=== PATIENT | male | born 1980 | race Caucasian/White ===

== ENCOUNTER 2023-05-06 18:27 | Observation (INO) | payer BC, OTHER ==
[~2023-05-06] VITALS: Ht 175.3 cm; Wt 90.7 kg
[2023-05-06 21:21] LABS: BASOPHILS % (AUTO) 0.4 % (0.0-5.0); EOSINOPHILS % (AUTO) 1.7 % (0.0-8.0); HEMATOCRIT 48.2 % (42-54); LYMPHOCYTES % (AUTO) 32.6 % (21.0-51.0); MEAN CORPUSCULAR HEMOGLOBIN 29.1 pg (27.0-33.0); MEAN CORPUSCULAR HGB CONC 32.6 g/dL (32.0-36.0); MEAN CORPUSCULAR VOLUME 89.3 fL (79-99); MONOCYTES % (AUTO) 10.2 % (3.0-13.0); NEUTROPHILS % (AUTO) 54.6 % (40.0-77.0); PLATELET COUNT (AUTO) 336 K/uL (130-400); RED CELL DISTRIBUTION WIDTH 12.7 % (11.0-15.5); WHITE BLOOD COUNT (AUTO) 8.3 K/uL (4.8-10.8)
[2023-05-06 21:29] LABS: CREATININE 1.3 mg/dL (0.5-1.5); POTASSIUM 3.6 mmol/L (3.5-5.1)
[2023-05-06 21:34] LABS: TOTAL PROTEIN, SERUM 8.3 g/dL (6.0-8.3)
[2023-05-07] MEDS ORDERED: VANCOMYCIN PROTOCOL PER PHARMACY IV SCH (00:30)
[2023-05-07] MEDS ORDERED: ZOSYN 3.375GM +NS 50ML IVPB ONE (00:30)
[2023-05-07] MEDS ORDERED: VANCOMYCIN 1G/250ML KIT 250 ML IV ONE ×2 (01:00→16:00)
[2023-05-07] MEDS ORDERED: POTASSIUM CHLORIDE 20MEQ/100ML 100 ML IV PRN (02:30)
[2023-05-07] MEDS ORDERED: VANCOMYCIN PROTOCOL PER PHARMACY IV PRN (02:30)
[2023-05-07] MEDS ORDERED: POTASSIUM CHLORIDE 10% ELIXIR 20 MEQ/15 ML UDCUP PO PRN (02:30)
[2023-05-07] MEDS ORDERED: MORPHINE 4 MG SYG IV PRN (02:30)
[2023-05-07] MEDS ORDERED: MORPHINE 2 MG SYG IV PRN (02:30)
[2023-05-07] MEDS ORDERED: ONDANSETRON 4MG INJ IV PRN (02:30)
[2023-05-07] MEDS ORDERED: LISINOPRIL 10 MG TABLET PO ONE (02:30)
[2023-05-07] MEDS ORDERED: ACETAMINOPHEN 325 MG TAB PO PRN ×2 (02:30)
[2023-05-07] MEDS ORDERED: KCL 20 MEQ ERTAB PO PRN (02:30)
[2023-05-07] MEDS ORDERED: MAGNESIUM 2GM PREMIX 50ML 50 ML IV PRN (02:30)
[2023-05-07] MEDS: ZOSYN 3.375GM+NS 50ML 50 ML IVPB SCH ×3 (05:38→20:30)
[2023-05-07 07:33] LABS: BASOPHILS % (AUTO) 0.4 % (0.0-5.0); EOSINOPHILS % (AUTO) 1.8 % (0.0-8.0); HEMATOCRIT 46.1 % (42-54); LYMPHOCYTES % (AUTO) 30.6 % (21.0-51.0); MEAN CORPUSCULAR HEMOGLOBIN 29.3 pg (27.0-33.0); MEAN CORPUSCULAR HGB CONC 32.3 g/dL (32.0-36.0); MEAN CORPUSCULAR VOLUME 90.7 fL (79-99); MONOCYTES % (AUTO) 11.8 % (3.0-13.0); PLATELET COUNT (AUTO) 302 K/uL (130-400); RED BLOOD CELL COUNT(AUTO) 5.08 MIL/uL (4.50-6.20); RED CELL DISTRIBUTION WIDTH 12.6 % (11.0-15.5); WHITE BLOOD COUNT (AUTO) 8.2 K/uL (4.8-10.8)
[2023-05-07 07:53] LABS: CREATININE 1.3 mg/dL (0.5-1.5); MAGNESIUM 2.1 mg/dL (1.80-2.40); PHOSPHORUS 3.3 mg/dL (2.5-4.9)
[2023-05-07] MEDS: LISINOPRIL 10 MG TABLET PO SCH (09:17)
[2023-05-07] MEDS: FAMOTIDINE 20MG TAB PO SCH ×2 (09:17→20:30)
[2023-05-07] MEDS: ENOXAPARIN SODIUM 40 MG/0.4 ML SYRINGE SQ SCH (09:17)
[2023-05-07] MEDS ORDERED: IBUPROFEN 200 MG TAB PO PRN (16:00)
[2023-05-07] MEDS: VANCOMYCIN 1G VIAL IVPB SCH (16:05)
[2023-05-08] MEDS ORDERED: VANCOMYCIN 1G/250ML KIT 250 ML IV ONE (03:16)
[2023-05-08] MEDS: VANCOMYCIN 1G VIAL IVPB SCH ×2 (03:17→14:26)
[2023-05-08] MEDS: ZOSYN 3.375GM+NS 50ML 50 ML IVPB SCH ×2 (05:18→12:51)
[2023-05-08 07:10] LABS: BASOPHILS % (AUTO) 0.3 % (0.0-5.0); EOSINOPHILS % (AUTO) 2.9 % (0.0-8.0); HEMATOCRIT 44.1 % (42-54); LYMPHOCYTES % (AUTO) 27.4 % (21.0-51.0); MEAN CORPUSCULAR HEMOGLOBIN 29.5 pg (27.0-33.0); MEAN CORPUSCULAR HGB CONC 32.4 g/dL (32.0-36.0); MEAN CORPUSCULAR VOLUME 90.9 fL (79-99); MONOCYTES % (AUTO) 12.6 % (3.0-13.0); NEUTROPHILS % (AUTO) 56.2 % (40.0-77.0); PLATELET COUNT (AUTO) 278 K/uL (130-400); RED BLOOD CELL COUNT(AUTO) 4.85 MIL/uL (4.50-6.20); RED CELL DISTRIBUTION WIDTH 12.8 % (11.0-15.5); WHITE BLOOD COUNT (AUTO) 8.6 K/uL (4.8-10.8)
[2023-05-08 07:31] LABS: ALBUMIN 3.3 g/dL (3.5-5.0); CREATININE 1.3 mg/dL (0.5-1.5); MAGNESIUM 1.8 mg/dL (1.80-2.40); POTASSIUM 4.3 mmol/L (3.5-5.1); TOTAL PROTEIN, SERUM 6.8 g/dL (6.0-8.3)
[2023-05-08] MEDS: FAMOTIDINE 20MG TAB PO SCH (07:47)
[2023-05-08] MEDS: LISINOPRIL 10 MG TABLET PO SCH (07:48)
[2023-05-08] MEDS: ENOXAPARIN SODIUM 40 MG/0.4 ML SYRINGE SQ SCH (07:48)
[2023-05-08 16:45] VITALS: BP 129/79
[2023-05-08] MEDS ORDERED: VANCOMYCIN 1G VIAL IVPB SCH (18:00)
[2023-05-10] MEDS ORDERED: IBUP-1493 PO (06:44)
[2023-05-10] MEDS ORDERED: AMOX1TAB16 PO (06:46)
== END 2023-05-08 17:27 | disposition home or self-care (01) ==
LOC: EDH 18:27 → EDHIP 05-07 02:06 → INTOOBSV 05-07 02:06
PROVIDERS: ADMIT Internal Medicine; ATTEND Internal Medicine
DX: L03.116 Cellulitis of left lower limb (principal); R59.1 Generalized enlarged lymph nodes; I10 Essential (primary) hypertension; E78.00 Pure hypercholesterolemia, unspecified; S80.822A Blister (nonthermal), left lower leg, initial encounter; M79.662 Pain in left lower leg; F17.210 Nicotine dependence, cigarettes, uncomplicated; Z51.5 Encounter for palliative care; Z79.899 Other long term (current) drug therapy; Z90.49 Acquired absence of other specified parts of digestive tract; Z98.890 Other specified postprocedural states; Y92.89 Other specified places as the place of occurrence of the external cause; Y93.89 Activity, other specified; Y99.8 Other external cause status
CPT/HCPCS: 99284; 80053 ×2; 85025 ×3; 87040 ×2; 83605; 36415 ×3; 96372 ×2; 96365; 96366 ×4; 96368; 83735 ×2; 84100; 80048; 87070; 87076; 93971; 76882; 96367; 80202; G0378 ×39; J2543 ×6; J3370 ×3; J1650 ×2; J3475